=== PATIENT | female | born 2000 | race African-American/Black ===

== ENCOUNTER 2020-09-18 07:08 | Inpatient (IN) | payer OTHER ==
[2020-09-18] MEDS ORDERED: BUTORPHANOL TARTRATE 1 MG/ML VIAL IVPB ONE (08:45)
[2020-09-18] MEDS ORDERED: PROMETHAZINE HCL 25 MG/1 ML VIAL IVPB ONE (08:45)
[2020-09-18 10:54] VITALS: BMI 29.5
[2020-09-18 11:01] LABS: BASO % 0.3 % (0-2.0); EOS % 0.2 % (0-4.5); HEMATOCRIT 33.7 % (32.4-45.2); HEMOGLOBIN 11.2 GM/dL (10.7-15.3); LYMPH % 16.3 % (8-40); MCH 29.1 pg (25.7-33.7); MCHC 33.1 g/dl (32.0-36.0); MEAN CELL VOLUME 87.8 fl (80-96); MEAN PLT VOLUME 11.3 fl (7.5-11.1); NEUT % 76.2 % (42.8-82.8); PLATELET COUNT 119 10^3/uL (134-434); RBC 3.84 M/mm3 (3.60-5.2); RDW 14.8 % (11.6-15.6)
[2020-09-18 11:10] LABS: INR 0.92 (0.83-1.09); PROTHROMBIN TIME (PATIENT) 11.4 SEC (9.7-13.0)
[2020-09-18] MEDS: DEXTROSE 5%-LACTATED RINGERS 1,000 ML IV SCH (11:10)
[2020-09-18 11:13] LABS: ACTIVATED PTT 25.1 SECONDS (25.2-36.5)
[2020-09-18 11:18] LABS: CALCIUM 8.2 mg/dL (8.5-10.1)
[2020-09-18 11:19] LABS: BLOOD UREA NITROGEN 4.8 mg/dL (7-18)
[2020-09-18 11:37] LABS: CREATININE 0.5 mg/dL (0.55-1.3)
[2020-09-18] MEDS ORDERED: OXYTOCIN 30 UNITS in 0.9% NS 30 UNIT/500 ML INFUS.BAG IVPB ONE (12:46)
[2020-09-18] MEDS: OXYTOCIN 30 UNITS in 0.9% NS 30 UNIT/500 ML INFUS.BAG IVPB SCH (12:54)
[2020-09-18] MEDS ORDERED: AMPICILLIN - 2 GM in SODIUM CHLORIDE 100 ML IVPB ONE (13:31)
[2020-09-18] MEDS ORDERED: AMPICILLIN SODIUM 2 GM VIAL ONE (13:39)
[2020-09-18] MEDS ORDERED: PROMETHAZINE HCL 25 MG/1 ML VIAL ONE (14:55)
[2020-09-18] MEDS ORDERED: BUTORPHANOL TARTRATE 2 MG/ML VIAL ONE (14:55)
[2020-09-18] MEDS ORDERED: BUPIVACAINE HCL/PF 0.25% (2.5MG/ML) 10 ML VIAL ONE (18:00)
[2020-09-18] MEDS ORDERED: FENTANYL/BUPIVACAINE/NS/PF - PCEA - 50 ML DISP.SYRIN EP ONE (18:02)
[2020-09-18] MEDS ORDERED: AMPICILLIN SODIUM 1 GM VIAL ONE ×2 (18:19→22:00)
[2020-09-18] MEDS: AMPICILLIN - 1 GM in SODIUM CHLORIDE 100 ML IVPB SCH ×2 (18:40→22:00)
[2020-09-18] MEDS ORDERED: NALOXONE HCL 0.4 MG/ML VIAL IVPUSH PRN (18:57)
[2020-09-18] MEDS ORDERED: FENTANYL/BUPIVACAINE/NS/PF - PCEA - 50 ML DISP.SYRIN EP SCH (19:00)
[2020-09-18] MEDS: OXYTOCIN 20 UNITS in 0.9% NS 20 UNIT/1,000 ML INFUS.BAG IV SCH (22:40)
[2020-09-18] MEDS ORDERED: OXYTOCIN 20 UNITS in 0.9% NS 20 UNIT/1,000 ML INFUS.BAG IV ONE (22:52)
[2020-09-18] MEDS ORDERED: BISACODYL 10 MG SUPP.RECT RC PRN (23:05)
[2020-09-18] MEDS ORDERED: oxyCODONE HCL 5 MG TABLET PO PRN (23:05)
[2020-09-18] MEDS ORDERED: BENZOCAINE 28 GM HEMORRHOIDAL OINTMENT TP PRN (23:05)
[2020-09-18] MEDS ORDERED: METHYLERGONOVINE MALEATE 0.2 MG/1 ML AMP IM PRN (23:05)
[2020-09-18] MEDS ORDERED: BENZOCAINE 20% 57 GM BOTTLE TP PRN (23:05)
[2020-09-18] MEDS ORDERED: WITCH HAZEL 50% (TUCKS) 40 PAD/JAR PAD TP PRN (23:05)
[2020-09-19] MEDS: IBUPROFEN 600 MG TABLET (FP) PO PRN ×2 (07:15→22:35)
[2020-09-19] MEDS: ACETAMINOPHEN 325 MG TABLET (FP) PO PRN ×2 (07:15→22:34)
[2020-09-19] MEDS: PRENATAL VITAMINS W/ FOLIC ACID TABLET (FP) PO SCH (09:31)
[2020-09-19 10:21] LABS: BASO % 0.2 % (0-2.0); EOS % 0.1 % (0-4.5); HEMATOCRIT 31.4 % (32.4-45.2); HEMOGLOBIN 10.1 GM/dL (10.7-15.3); LYMPH % 14.7 % (8-40); MCH 28.7 pg (25.7-33.7); MCHC 32.2 g/dl (32.0-36.0); MEAN CELL VOLUME 88.9 fl (80-96); MEAN PLT VOLUME 11.9 fl (7.5-11.1); MONO % 6.1 % (3.8-10.2); NEUT % 78.9 % (42.8-82.8); PLATELET COUNT 109 10^3/uL (134-434); RBC 3.53 M/mm3 (3.60-5.2); RDW 14.8 % (11.6-15.6); WHITE BLOOD COUNT 11.1 K/mm3 (4.0-10.0)
[2020-09-19] MEDS ORDERED: SENNOSIDES/DOCUSATE COMBO (SENNA PLUS) TABLET (UD) PO PRN (22:00)
[2020-09-20 09:10] VITALS: BP 123/80; PULSE 78; TEMP 97.8
[2020-09-20] MEDS: PRENATAL VITAMINS W/ FOLIC ACID TABLET (FP) PO SCH (09:15)
[2020-09-20] MEDS: OXYTOCIN 30 UNITS in 0.9% NS 30 UNIT/500 ML INFUS.BAG IVPB SCH ×2 (11:09→11:10)
[2020-09-20] MEDS: OXYTOCIN 20 UNITS in 0.9% NS 20 UNIT/1,000 ML INFUS.BAG IV SCH (11:09)
[2020-09-20] MEDS: DEXTROSE 5%-LACTATED RINGERS 1,000 ML IV SCH ×2 (11:09→11:10)
== END 2020-09-20 12:40 | disposition home or self-care (01) | DRG 560 ==
LOC: JLDR 07:08 → J3W 09-19 00:45
PROVIDERS: ADMIT Obstetrics & Gynecology; ATTEND Obstetrics & Gynecology
PROC: 10E0XZZ Delivery of Products of Conception, External Approach (ICD-10-PCS; principal; 2020-09-18)
PROC: 3E033VJ Introduction of Other Hormone into Peripheral Vein, Percutaneous Approach (ICD-10-PCS; 2020-09-18)
PROC: 10907ZC Drainage of Amniotic Fluid, Therapeutic from Products of Conception, Via Natural or Artificial Opening (ICD-10-PCS; 2020-09-18)
PROC: 0W8NXZZ Division of Female Perineum, External Approach (ICD-10-PCS; 2020-09-18)
DX: O48.0 Post-term pregnancy (principal); Z3A.40 40 weeks gestation of pregnancy; Z37.0 Single live birth
CPT/HCPCS: 36415; 59409; 80048; 85025; 85610; 85730; 86780; 86850; 86900; 86901; C9803; U0003; U0005